=== PATIENT | female | born 1985 | race African-American/Black ===

== ENCOUNTER → 2022-10-08 | Day surgery (SDC) | payer BC | END | disposition home or self-care (01) | LOC: JRADIR 10:05 | PROVIDERS: ATTEND Orthopaedic Surgery Orthopaedic Trauma | PROC: BQ01YZZ Plain Radiography of Left Hip using Other Contrast (ICD-10-PCS; principal; 2022-10-08) | DX: M25.552 Pain in left hip (principal) | CPT/HCPCS: 27093; 73525-TC-FY; 73722-TC; 77002-TC-FY; 84703 ==